=== PATIENT | female | born 1960 | race Caucasian/White ===

== ENCOUNTER 2016-08-04 17:57 | Emergency (ER) | payer OTHER ==
[~2016-08-04] VITALS: Ht 160 cm; Wt 80.0 kg
[~2016-08-04 17:57] MED LIST: CLEOCIN150 MG PO
[2016-08-04] MEDS ORDERED: ALEVE220 MG PO (18:41)
[2016-08-04] MEDS ORDERED: TRAMADOL HCL50 MG PO (19:31)
[2016-08-04] MEDS ORDERED: MOBIC7.5 MG PO (19:31)
[2016-08-04 19:58] VITALS: BP 143/83
== END 2016-08-04 19:58 | disposition home or self-care (01) ==
LOC: EME 17:57
DX: S80.01XA Contusion of right knee, initial encounter (principal); W18.30XA Fall on same level, unspecified, initial encounter; M19.90 Unspecified osteoarthritis, unspecified site
CPT/HCPCS: 73564; 99281; 99284

== ENCOUNTER 2017-09-15 13:03 | Emergency (ER) | payer OTHER ==
[~2017-09-15] VITALS: Ht 162.6 cm; Wt 80.6 kg
[~2017-09-15 13:03] MED LIST changes: +ALEVE220 MG PO; +MOBIC7.5 MG PO; +TRAMADOL HCL50 MG PO
[2017-09-15] MEDS ORDERED: KEFLEX500 MG PO (14:57)
[2017-09-15 15:12] VITALS: BP 149/86
== END 2017-09-15 15:14 | disposition home or self-care (01) ==
LOC: RME 13:03 → EME 13:03 → RME 15:14
DX: S61.211A Laceration without foreign body of left index finger without damage to nail, initial encounter (principal); S62.601A Fracture of unspecified phalanx of left index finger, initial encounter for closed fracture; W23.0XXA Caught, crushed, jammed, or pinched between moving objects, initial encounter; Y99.0 Civilian activity done for income or pay; Z23 Encounter for immunization; F17.200 Nicotine dependence, unspecified, uncomplicated; Z88.5 Allergy status to narcotic agent
CPT/HCPCS: 73140; 99281; 99284